=== PATIENT | female | born 1955 | race Caucasian/White ===

== ENCOUNTER → 2023-07-20 13:32 | Outpatient (REF) | payer MEDICARE, SELFPAY | LOC: RCS 13:32 | PROVIDERS: ATTENDING PHYSICIAN Nuclear Medicine Nuclear Cardiology; FAMILY PHYSICIAN Physician Assistant Medical | DX: R55 Syncope and collapse (principal); R07.89 Other chest pain | CPT/HCPCS: 93017; 93350; Q9957 ==

== ENCOUNTER → 2023-12-05 14:03 | Outpatient (REF) | payer MEDICARE, SELFPAY | LOC: PAVMRI 14:03 | PROVIDERS: ATTENDING PHYSICIAN Specialist; FAMILY PHYSICIAN Physician Assistant Medical | DX: D32.0 Benign neoplasm of cerebral meninges (principal); I63.9 Cerebral infarction, unspecified; R42 Dizziness and giddiness | CPT/HCPCS: 70553; A9575 ==

== ENCOUNTER → 2023-12-15 08:02 | Outpatient (REF) | payer MEDICARE, SELFPAY | LOC: HWWDC 08:02 | PROVIDERS: ATTENDING PHYSICIAN Physician Assistant Medical; REFERRING PHYSICIAN Obstetrics & Gynecology Gynecology | DX: Z12.31 Encounter for screening mammogram for malignant neoplasm of breast (principal) | CPT/HCPCS: 77063; 77067 ==

== ENCOUNTER → 2023-12-30 11:22 | Outpatient (REF) | payer MEDICARE, SELFPAY ==
[2023-12-30 13:28] LABS: Blood Urea Nitrogen 28 mg/dl (7-17); Calcium 9.8 mg/dl (8.4-10.2); Carbon Dioxide 23 mmol/L (22-30); Chloride 108 mmol/L (98-107); Glucose 97 mg/dl (70-99); Potassium 4.1 mmol/L (3.5-5.1); Sodium 142 mmol/L (135-145); eGFR > 60.00
== END ==
LOC: REG 11:22
PROVIDERS: ATTENDING PHYSICIAN Physician Assistant Medical
DX: Z01.812 Encounter for preprocedural laboratory examination (principal)
CPT/HCPCS: 36415; 80048

== ENCOUNTER 2023-12-30 14:27 | Emergency (ER) | payer MEDICARE, SELFPAY ==
[2023-12-30 14:31] VITALS: BP 123/84
[2023-12-30 15:15] VITALS: BP 144/63
[2023-12-30 15:30] VITALS: BP 134/74
[2023-12-30 16:00] VITALS: BP 124/92
[2023-12-30 16:30] VITALS: BP 151/74
[2023-12-30 16:41] LABS: Urine Albumin Negative (Neg - Trace); Urine Bilirubin Negative (Negative); Urine Character Clear (Clear); Urine Color Straw; Urine Glucose Negative (Negative); Urine Ketone Trace (Negative); Urine Leukocyte Negative (Negative); Urine Nitrite Negative (Negative); Urine Occult Blood Negative (Negative); Urine Urobilinogen Negative (Neg - 1+)
--- NOTE | 2023-12-30 17:02 | ED.GENMED ---
History of Present Illness
General
Chief Complaint: Abdominal Symptoms
Source: patient, records and spouse
Exam Limitations: none
Time Seen by Provider: 12/30/23 15:32
Nursing documentation reviewed up to this point in time: agreed with
History of Present Illness
History of Present Illness:
Patient is a 68-year-old female who was sent to the emergency department after developing a reaction following a CT scan with IV and oral contrast. Patient states that she seem to go through it fine and then after the scan was essentially done she
started to sneeze and then noticed her hands were itching. Then she felt her heart racing and feeling flushed. Patient felt hoarse and was told her tongue was thick. Patient feels fine now. Patient has had right lower quadrant tenderness and
pain for the past 2 weeks. Patient saw her doctor and had an ultrasound this morning which showed a noncompressible appendix. Patient was then ordered a CT scan with oral and IV contrast. Patient's never had a problem with contrast or seafood in
the past. Patient denies any anorexia, nausea, vomiting or diarrhea. Patient has an appointment with a spinner concrete pipe at the end of February. Patient does have a history of GERD and takes omeprazole. Patient also has a history of chronic
leukemia and had a CBC done but the results are not known.
Past History
Past History
ED Past Medical History: Cancer, GERD and Other (Pulmonary embolism)
ED Past Surgical History: , Orthopedic (left hip surgery with PE afterwards) and Other (ectopic surgery)
Social History
Tobacco: Non-smoker
Alcohol: None
Drug: None
Personal:
Living: with family
Employment: Retired
Family History
Family History: Other (Mother with CLL father with CHF and hypertension, brother with Alzheimer's)
Review of Systems
Review of Systems
All Other Systems: ROS reviewed and negative except as documented in HPI and ROS
Constitutional: Reports no symptoms
EENT: Reports sore throat
Respiratory: Reports no symptoms; Denies trouble breathing
Cardiac: Reports no symptoms
ABD/GI: Reports abdominal pain; Denies nausea, vomiting, diarrhea, constipated, bloody stools, black stools or anorexia
: Reports no symptoms
Musculoskeletal: Reports no symptoms
Skin: Reports itching
Neurological: Reports no symptoms
Hematologic/Lymphatic: Reports no symptoms
Psychiatric: Reports no symptoms
Phy Exam
Physical Exam
Physical Exam:
Physical Exam
General: No apparent distress, alert and appropriate, well nourished, well hydrated
HENT: Normocephalic, supple
Eyes: Clear sclera, conjuctiva without injection
Heart: Regular rhythm and rate. No S3, S4. No murmur.
Lungs: No respiratory distress, no stridor, lung sounds clear and equal bilaterally
Abdomen: Soft, mild right lower quadrant tenderness without guarding or rebound, no organomegaly, no CVA tenderness, BS good
Neuro: Alert and oriented x 3, CN II - XII intact, no motor focality, no cerebellar dysfunction
Skin: no rash
Psychiatric: well kept. interactive and cooperative
Extremities: No edema, cyanosis, tenderness
Course
Orders/Labs/Results
Orders:
Orders
12/30/23 16:27
Urinalysis Reflex To Culture Urgent
Date Specimen was Collected: 12/30/23
Time Specimen was Collected: 16:24
Abnormal Lab Results
24
16:27
Urine Ketones Trace A
(Negative)
12/30/23 16:27
Vital Signs
Initial and Last Documented VS:
Initial Vital Signs
Temp Pulse Resp BP
98.0 F 80 16 123/84
12/30/23 14:31 12/30/23 14:31 12/30/23 14:31 12/30/23 14:31
Last Documented Vital Signs
Temp Pulse Resp BP Pulse Ox
98.0 F 86 24 151/74 100
12/30/23 14:31 12/30/23 16:30 12/30/23 16:30 12/30/23 16:30 12/30/23 16:30
*Radiology
Radiology exam reviewed: radiology read reviewed (Mesenteric lymphadenopathy which is unchanged)
*Pulse Oximetry
Patient hypoxic: no
*EKG
Interpreted by ED Provider?: NA
*Hair Preparer Interpretation
Rate: Hair Preparer- N/A
*Critical Care Note
Total Time (30-74mins, 75-104mins- exclusive of procedures): Not Applicable
Update Note
Update Note:
Patient had the abdominal pain for 2 weeks. No signs of appendicitis. Will try diet manipulation, Metamucil or the equivalent and Bentyl.
ED Attending Note
-
Portions of this chart may have been created with voice recognition software.� Occasional wrong word or��sound alike� substitutions may have occurred due to the inherent limitations of voice recognition software.
Discharge Plan
Departure
Patient Disposition: Home (Routine Discharge)
Date of Disposition: 12/30/23
Time of Disposition: 17:09
Patient with high blood pressure during this ER visit?: No
Condition: Good
Covid-19: Not Applicable
Discharge Problem:
Abdominal pain
Instructions: [place] Diet, Abdominal Pain
Prescriptions:
New
dicyclomine 10 mg capsule
10 mg PO QID PRN (Reason: abdominal pain) Qty: 30 0RF
No Action
multivitamin with folic acid [Tab-A-Divina] 1 TABLET tablet
1 tab PO DAILY
levothyroxine 25 MCG tablet
50 mcg PO DAILY
ascorbic acid (vitamin C) [Vitamin C] 1,000 mg Tablet
1,000 mg PO DAILY
zinc 50 mg Capsule
50 mg PO DAILY
cholecalciferol (vitamin D3) [Vitamin D3] 125 mcg (5,000 unit) Tablet
125 mcg PO DAILY
[place] 3
980 mg PO DAILY
nucrpqr-ytoj-huihx-oreg-capryl
1,000 mg PO DAILY
meclizine 25 mg tablet
25 mg PO BID PRN (Reason: dizziness) Qty: 15 0RF
Referrals:
Tamiko Guy PA-C [Family Provider] - Follow up in 5-7 days
Activity Restrictions/Additional Instructions:
Try to eliminate gluten from your diet to see if it makes any difference. Use Metamucil daily. Any increasing pain, fever or vomiting please return.
Interventions
Interventions:
*General Assessment Last Done: 12/30/23 15:13
Discharge Date and Time
Print Language: POLISH
== END 2023-12-30 17:35 | disposition home or self-care (01) ==
LOC: EMR 14:27
PROVIDERS: EMERGENCY PHYSICIAN Emergency Medicine; FAMILY PHYSICIAN Physician Assistant Medical
DX: R00.0 Tachycardia, unspecified (principal); R23.2 Flushing; T50.8X5A Adverse effect of diagnostic agents, initial encounter; Y92.9 Unspecified place or not applicable; K21.9 Gastro-esophageal reflux disease without esophagitis; R10.9 Unspecified abdominal pain; Z82.49 Family history of ischemic heart disease and other diseases of the circulatory system; Z86.711 Personal history of pulmonary embolism
CPT/HCPCS: 99284; 74177; 76705; 81003; Q9967

== ENCOUNTER → 2024-03-28 06:42 | Day surgery (SDC) | payer MEDICARE, SELFPAY | LOC: GI 06:42 | PROVIDERS: ATTENDING PHYSICIAN Internal Medicine | DX: R10.13 Epigastric pain (principal); K44.9 Diaphragmatic hernia without obstruction or gangrene; K31.7 Polyp of stomach and duodenum; K22.89 Other specified disease of esophagus; K31.89 Other diseases of stomach and duodenum; K29.50 Unspecified chronic gastritis without bleeding | CPT/HCPCS: 43239; 88305; 88342 ==

== ENCOUNTER 2024-05-11 14:46 | Emergency (ER) | payer MEDICARE, SELFPAY ==
[2024-05-11 14:48] VITALS: BP 147/70
--- NOTE | 2024-05-11 15:44 | ED.GENMED ---
History of Present Illness
General
Chief Complaint: Fever
Source: patient
Time Seen by Provider: 05/11/24 15:09
History of Present Illness
History of Present Illness:
68-year-old female with past medical history of CLL, diagnosed 5 years ago but due to progression just started treatment for this last week with her first immunotherapy session just 2 days ago, presenting to the emergency department for evaluation
after she developed a fever with a Tmax of 100.7 earlier this morning around 5 AM which is the last time she took any Tylenol. Patient states that she was feeling a little lightheaded today and while showering around 8:00 syncopized. Patient did
note that she had prodromal symptom of feeling like she was going to pass out prior to this event. She states since that time however she has had some mild left mid to upper back/lateral chest discomfort that worsens with deep inspiration. She
denies any cough, hemoptysis, shortness of breath, abdominal pain, headache, visual changes or vomiting, lower extremity edema. Patient was at her primary care provider today and also spoke with her oncologist who wanted the patient to come to the
ER for lab work and imaging.
Past History
Past History
ED Past Medical History: Cancer, GERD and Other (Pulmonary embolism)
ED Past Surgical History: , Orthopedic (left hip surgery with PE afterwards) and Other (ectopic surgery)
Social History
Tobacco: Non-smoker
Alcohol: None
Drug: None
Personal:
Living: with family
Employment: Retired
Family History
Family History: Other (Mother with CLL father with CHF and hypertension, brother with Alzheimer's)
Review of Systems
Review of Systems
All Other Systems: ROS reviewed and negative except as documented in HPI and ROS
Phy Exam
Physical Exam
Physical Exam:
GENERAL: Alert , in no apparent distress, well-appearing and pleasant
Head: Normocephalic atraumatic
EYE: Clear conjunctiva
NECK: Supple, no midline tenderness
ENT: o/p clr, mmm.
CARDIAC: Regular rate and rhythm .
LUNGS: Clear breath sounds bilaterally, no acute respiratory distress, no wheezes/rales/rhonchi
Chest wall: No focal bony areas of tenderness
ABDOMEN: Soft, without focal tenderness, no r/g, no cvat
NEUROLOGICAL: Alert and oriented
SKIN: Warm and dry, skin intact.
MUSCULOSKELETAL: No edema, well perfused.
PSYCH: Normal and appropriate interaction.
Scores
Heart Failure Risk
Heart Failure Risk Score: Not Applicable
Heart Score for Chest Pain Patients
STEMI patient?: Not applicable
Withdrawal Assessment of Alcohol
Withdrawal Assessment Completed?: Not applicable
Course
Orders/Labs/Results
Orders:
Orders
05/11/24 15:25
Orthostatic VS- Treatment ONCE
05/11/24 15:26
Electrocardiogram (*1) Urgent
Reason for Study: Syncope
CT Chest Pe Study Urgent
Comment:
Reason For Exam: syncope, pleurisy
EKG- Treatment ONCE
05/11/24 15:39
Diphenhydramine [Benadryl] 50 mg IV NOW STA
Hydrocortisone Sod Succinate [Solu-Cortef] 200 mg IV NOW STA
05/11/24 15:40
Troponin I Urgent
Blood Culture Q30M
FUENTES Source: Blood/Venous
Specimen Description:
05/11/24 15:41
Complete Blood Count/With Diff Urgent
Comprehensive Metabolic Panel Urgent
LDH Urgent
Comment: ADD ON
Lactic Acid Q4H
Comment: CANCEL 2nd LACTIC ACID IF 1st LACTIC ACID IS LESS THAN 2
Magnesium Urgent
Uric Acid Urgent
Urinalysis Reflex To Culture Urgent
Date Specimen was Collected: 05/11/24
Time Specimen was Collected: 15:37
Urine Microscopic Reflex Cult Urgent
Blood Culture Q30M
FUENTES Source: Blood/Venous
Specimen Description:
Urine Culture Urgent
FUENTES Source: U
Specimen Description:
Date Specimen was Collected: 05/11/24
Time Specimen was Collected: 15:37
05/11/24 18:20
COVID-19 Antigen Urgent
Source: Nasal Swab
Influenza A+B Rapid Molecular Urgent
FUENTES Source: Nasal Swab
Specimen Description:
05/11/24 18:21
Add On- LAB Urgent
Tests Added?: LDH
Abnormal Lab Results
05/11/24
15:41
WBC 2.6 L 10^3/uL
(4.8-10.8)
RBC 2.69 L 10^6/uL
(4.20-5.40)
Hgb 8.6 L g/dL
(12.0-16.0)
Hct 26.2 L %
(37.0-47.0)
MCH 32.0 H pg
(27.0-31.0)
MCHC 32.8 L g/dL
(33.0-37.0)
RDW 18.1 H %
(11.5-14.5)
Plt Count 48 L 10^3/uL
(130-400)
MPV 10.5 H fL
(7.4-10.4)
Absolute Lymphs (auto) 0.7 L 10^3/uL
(1.2-3.4)
Immature Gran % 1.5 H %
(0-0.5)
BUN 22 H mg/dl
(7-17)
Glucose 118 H mg/dl
(70-99)
Total Bilirubin 2.0 H mg/dl
(0.2-1.3)
AST 59 H U/L
(14-36)
ALT 75 H U/L
(0-35)
Total Protein 5.7 L g/dl
(6.3-8.2)
Ur Occult Blood Reflex 2+ A
(Negative)
Leukocyte Esterase Rfl 1+ A
(Negative)
05/11/24 15:41
05/11/24 15:41
Vital Signs
Initial and Last Documented VS:
Initial Vital Signs
Temp Pulse Resp BP Pulse Ox
99.2 F 81 16 147/70 100
05/11/24 14:48 05/11/24 14:48 05/11/24 14:48 05/11/24 14:48 05/11/24 14:48
Last Documented Vital Signs
Temp Pulse Resp BP Pulse Ox
99.2 F 71 19 121/62 100
05/11/24 14:48 05/11/24 17:00 05/11/24 17:00 05/11/24 16:02 05/11/24 14:48
MDM/Problems Addressed
Differential Diagnosis Includes:
Cardiogenic syncope versus orthostasis versus vagal event, sepsis, tumor lysis syndrome, UTI, pneumonia, rib fracture, PE
MDM/Problems Addressed:
68-year-old female presenting to the emergency department for evaluation of fever that started earlier this morning, last dose of Tylenol around 5 AM. Patient also had syncopal event earlier today with prodromal symptoms but since that time has had
some left upper back/thoracic discomfort. Afebrile here and hemodynamically stable. Patient is also well-appearing. Will check labs requested by patient's oncology team. Given her syncope and pleurisy I did add on a CTA of the chest to rule out
pulmonary embolism. Will also check EKG and troponin. Disposition pending.
Chronic conditions affecting care: Cancer
*Radiology
Radiology exam reviewed: radiology read reviewed
*Pulse Oximetry
Patient hypoxic: no
*Inspector Tubes Interpretation
Rate: normal
Rhythm: sinus
*Critical Care Note
Total Time (30-74mins, 75-104mins- exclusive of procedures): Not Applicable
Data Reviewed
Review of Other/Old Records Reveals: Labs and Records
Comment
Comment:
After ordering CT of the chest patient informed us that last time she had the CT with contrast she believes that she had an allergic reaction to the contrast dye. Will pretreat with medications.
5:40PM - called into patients room, O2 sat 78% RA. Patient denies SOB but states feels weak. Placed on 4L NC but only brought O2 sat to 83%. NRB placed with response to 94%. Patient states weakness improving. No angioedema, tolerating secretions,
and speaking full sentences
Patient Management
Discussion with other providers: Mixer Attendant
Escalation/DeEscalation of care consider admission/obs:
Patient's oxygen was able to be weaned off and she maintains a 100% room air saturation. Continues to not display any signs of anaphylaxis. Patient CT scan without any acute findings. I contacted patient's oncology team spoke with her oncologist,
Dr. Crandall, and reviewed all of these results. Patient's hematology labs are all similar to when patient last had labs done earlier this week. Unclear etiology for patient's mildly elevated bilirubin and AST/ALT. COVID and flu testing were
negative. At this time patient is stable for discharge home, oncology team agrees and will continue following up with the patient.
ED Attending Note
-
Portions of this chart may have been created with voice recognition software.� Occasional wrong word or��sound alike� substitutions may have occurred due to the inherent limitations of voice recognition software.
Discharge Plan
Departure
Patient Disposition: Home (Routine Discharge)
Date of Disposition: 05/11/24
Time of Disposition: 18:44
Patient with high blood pressure during this ER visit?: No
Discharge Problem:
Fever, Anemia, Thrombocytopenia
Instructions: Fever, Adult (DC)
Prescriptions:
No Action
multivitamin with folic acid [Tab-A-Divina] 1 TABLET tablet
1 tab PO DAILY
levothyroxine 25 MCG tablet
50 mcg PO DAILY
ascorbic acid (vitamin C) [Vitamin C] 1,000 mg Tablet
1,000 mg PO DAILY
zinc 50 mg Capsule
50 mg PO DAILY
cholecalciferol (vitamin D3) [Vitamin D3] 125 mcg (5,000 unit) Tablet
125 mcg PO DAILY
[place] 3
980 mg PO DAILY
wnliazz-qgat-nnadv-oreg-capryl
1,000 mg PO DAILY
meclizine 25 mg tablet
25 mg PO BID PRN (Reason: dizziness) Qty: 15 0RF
dicyclomine 10 mg capsule
10 mg PO QID PRN (Reason: abdominal pain) Qty: 30 0RF
Referrals:
Tamiko Guy PA-C [Family Provider] -
Interventions
Interventions:
*Risk Screen - Suicide Last Done: 05/11/24 14:48
*General Assessment Last Done: 05/11/24 14:48
*Neglect/Abuse Screening Last Done: 05/11/24 14:48
ED- Fall Risk Assessment Last Done: 05/11/24 15:53
*ED COVID-19 Vaccine History Last Done: 05/11/24 15:53
*Nursing Disposition Last Done: 05/11/24 18:52
ED- Neurological Assessment Last Done: 05/11/24 15:53
ED-Skin Assessment Last Done: 05/11/24 15:53
Discharge Date and Time
Discharge Date/Time: 05/11/24 18:53
Print Language: HUNGARIAN
[2024-05-11 15:53] VITALS: BMI 26.5
[2024-05-11 16:00] VITALS: BP 112/53
[2024-05-11 16:01] VITALS: BP 116/55
[2024-05-11] MEDS: BENADRYL 50 MG IV (16:01)
[2024-05-11 16:02] VITALS: BP 121/62
[2024-05-11] MEDS: SOLU-CORTEF 200 MG IV (16:02)
[2024-05-11 16:06] LABS: Urine Albumin Negative (Neg - Trace); Urine Bilirubin Negative (Negative); Urine Character Clear (Clear); Urine Color Straw; Urine Glucose Negative (Negative); Urine Ketone Negative (Negative); Urine Leukocyte 1+ (Negative); Urine Nitrite Negative (Negative); Urine Occult Blood 2+ (Negative); Urine Urobilinogen Negative (Neg - 1+)
[2024-05-11 16:08] LABS: % Eosinophils 0.4 % (0-6); % Immature Granulocytes 1.5 % (0-0.5); % Lymphocytes 24.6 % (20.5-51.1); % Monocytes 7.6 % (1.7-9.3); % Neutrophils 65.9 % (42.2-75.2); Absolute Lymphocytes 0.7 10^3/uL (1.2-3.4); Absolute Monocytes 0.2 10^3/uL (0.1-0.6); Absolute Neutrophils 1.7 10^3/uL (1.4-6.5); Hematocrit 26.2 % (37.0-47.0); Hemoglobin 8.6 g/dL (12.0-16.0); Mean Corp Hgb Conc. 32.8 g/dL (33.0-37.0); Mean Corpuscular Volume 97.4 fL (81.0-99.0); Nucleated Red Blood Cells % 0 %; Red Blood Cell Count 2.69 10^6/uL (4.20-5.40); Red Cell Dist. Width 18.1 % (11.5-14.5); White Blood Cell Count 2.6 10^3/uL (4.8-10.8)
[2024-05-11 16:10] VITALS: BP 112/53; BP 116/55; BP 121/62; PULSE 100; PULSE 77; PULSE 78
[2024-05-11 16:13] LABS: ALT (SGPT) 75 U/L (0-35); AST (SGOT) 59 U/L (14-36); Albumin 3.6 g/dl (3.5-5.0); Alkaline Phosphatase 45 U/L (38-126); Blood Urea Nitrogen 22 mg/dl (7-17); Calcium 8.5 mg/dl (8.4-10.2); Carbon Dioxide 27 mmol/L (22-30); Chloride 102 mmol/L (98-107); Estimated Creatinine Clearance 79 ml/min; Glucose 118 mg/dl (70-99); Lactic Acid 0.9 mmol/L (0.7-2.0); Potassium 3.5 mmol/L (3.5-5.1); Sodium 138 mmol/L (135-145); Total Protein 5.7 g/dl (6.3-8.2); Uric Acid 3.3 mg/dl (2.5-6.2); eGFR > 60.00
[2024-05-11 16:29] LABS: Urine Squamous Cell 0-2 /LPF (Few)
[2024-05-11 16:30] LABS: Mean Platelet Volume 10.5 fL (7.4-10.4); Platelet Count 48 10^3/uL (130-400); Urine Red Blood Cell 0-2 /HPF (0-2); Urine White Cell 0-2 /HPF (0-5)
[2024-05-11 16:31] LABS: Troponin I < 0.012 ng/ml
[2024-05-11 18:43] LABS: COVID-19 Antigen Negative (Negative)
[2024-05-11 18:51] LABS: LDH 243 U/L (120-246)
== END 2024-05-11 18:53 | disposition home or self-care (01) ==
LOC: EMR 14:46
PROVIDERS: Physician Assistant Medical; EMERGENCY PHYSICIAN Emergency Medicine; FAMILY PHYSICIAN Physician Assistant Medical
DX: R50.9 Fever, unspecified (principal); D64.9 Anemia, unspecified; D69.6 Thrombocytopenia, unspecified; C91.10 Chronic lymphocytic leukemia of B-cell type not having achieved remission; K21.9 Gastro-esophageal reflux disease without esophagitis; Z86.711 Personal history of pulmonary embolism; R09.1 Pleurisy; Z79.899 Other long term (current) drug therapy
CPT/HCPCS: 96374; 96375; 99284; 71275; 80053; 81003; 81015; 83605; 83615; 83735; 84484; 84550; 85025; 87040; 87086; 87502; 87811; 93005; Q9967

== ENCOUNTER → 2024-06-11 09:29 | Outpatient (REF) | payer MEDICARE, SELFPAY | LOC: RCS 09:29 | PROVIDERS: ATTENDING PHYSICIAN Physician Assistant; FAMILY PHYSICIAN Physician Assistant Medical | DX: R42 Dizziness and giddiness (principal); C91.10 Chronic lymphocytic leukemia of B-cell type not having achieved remission; R06.09 Other forms of dyspnea; I34.0 Nonrheumatic mitral (valve) insufficiency | CPT/HCPCS: 93306; 93356 ==

== ENCOUNTER 2024-08-23 04:51 | Emergency (ER) | payer MEDICARE, SELFPAY ==
[2024-08-23 04:55] VITALS: BP 152/97
[2024-08-23 05:22] VITALS: BP 148/72
[2024-08-23 05:23] VITALS: BMI 27.5
[2024-08-23 06:12] VITALS: BP 135/60
--- NOTE | 2024-08-23 06:14 | ED.GENMED ---
History of Present Illness
General
Chief Complaint: Chest Problem
Source: patient
Exam Limitations: none
Time Seen by Provider: 08/23/24 06:01
History of Present Illness
History of Present Illness:
See MDM
Past History
Past History
ED Past Medical History: Cancer, GERD and Other (Pulmonary embolism)
ED Past Surgical History: , Orthopedic (left hip surgery with PE afterwards) and Other (ectopic surgery)
Social History
Tobacco: Non-smoker
Alcohol: None
Drug: None
Personal:
Living: with family
Employment: Retired
Family History
Family History: Other (Mother with CLL father with CHF and hypertension, brother with Alzheimer's)
Phy Exam
Physical Exam
Physical Exam:
See MDM
Course
Orders/Labs/Results
Orders:
Orders
08/23/24 04:54
EKG [Electrocardiogram (*1)] Urgent
Reason for Study: Chest Pain
EKG- Treatment ONCE
08/23/24 06:09
Complete Blood Count/With Diff Urgent
Comprehensive Metabolic Panel Urgent
Manual Differential Urgent
Troponin I Urgent
08/23/24 06:13
CR Chest - 2 Views Urgent
Comment:
Reason For Exam: intermittent chest pain
US Periph Venous LOWER Ext [place] Urgent
Comment:
Reason For Exam: CP, SOB, leg pain
08/23/24 06:14
CT Abd/pel Without Iv Or Oral Urgent
Comment:
Reason For Exam: flank and midline low back pain
Abnormal Lab Results
08/23/24
06:09
WBC 32.5 H 10^3/uL
(4.8-10.8)
RBC 3.96 L 10^6/uL
(4.20-5.40)
MCHC 32.8 L g/dL
(33.0-37.0)
Abs Neuts (Manual) 27.3 H 10^3/uL
(1.4-6.5)
Segmented Neutrophils 78 H %
(42-75)
Band Neutrophils 6 H %
(0-3)
Lymphocytes (Manual) 9 L %
(20-51)
BUN 20 H mg/dl
(7-17)
Glucose 110 H mg/dl
(70-99)
Alkaline Phosphatase 142 H U/L
(38-126)
08/23/24 06:09
08/23/24 06:09
Vital Signs
Initial and Last Documented VS:
Initial Vital Signs
Temp Pulse Resp BP Pulse Ox
98.6 F 100 18 152/97 100
08/23/24 04:55 08/23/24 04:55 08/23/24 04:55 08/23/24 04:55 08/23/24 04:55
Last Documented Vital Signs
Temp Pulse Resp BP Pulse Ox
98.0 F 89 16 141/66 99
08/23/24 07:25 08/23/24 07:15 08/23/24 07:15 08/23/24 07:15 08/23/24 07:15
MDM/Problems Addressed
Differential Diagnosis Includes:
HPI and MDM Narrative:
69-year-old female presenting with several days of intermittent back pain. Patient localizes the pain to her midline low back. When this occurs, she gets a feeling in her chest and complains of chest pressure. This then causes a fast heart rate.
The symptoms appear to come and go. There is no exertional component to this. Currently, patient symptom-free. Patient does have history of CLL and recently received Neulasta shot. However, she states there is no new medications.
On exam, she is well-appearing nontoxic. We did discuss the possibility of dissection versus pulmonary embolism but given the intermittent symptoms and how well-appearing she is, doubt the diagnosis. Patient states she is severely allergic to IV
dye even when given the steroid and Benadryl prep. Will avoid IV dye. Will obtain bilateral leg ultrasound to rule out any concern for clots. Will obtain chest x-ray and will obtain CT abdomen/pelvis without contrast to evaluate for any
metastatic disease
Given the intermittent palpitations, discussed outpatient Holter monitor. Patient states she recently just had one
Physical exam
General: Well appearing and non-toxic
HEENT: protecting airway
Neck: appears supple
CV: No evidence of cyanosis. Regular rate and rhythm
Resp: No accessory muscle use. Lungs clear
Abd: Non-distended
Back: Mild lower lumbar tenderness without skin changes
Extremities: No deformities. No unilateral erythema to lower extremities
Neuro: alert
Psych: Normal affect
Skin: Intact
Problems Addressed including Acute and Chronic Conditions affecting care:
1. Intermittent chest discomfort
Acuity: acute
Prognosis: stable
Details: Given the intermittent nature without exertional component, doubt ACS or dissection. Will obtain chest x-ray
2. Intermittent back pain
Acuity: acute
Prognosis: stable
Details: Will obtain CT looking for any evidence of pathologic fracture or metastatic disease
Updates
Chest x-ray clear. Ultrasound negative for DVT. CT negative for acute pathology other than constipation issues. Patient feels comfortable going home. Discussed laxatives and stool softeners and follow-up with PCP. We question whether or not
patient should be evaluated by cardiology. She states she just saw the inspector pawnshop detail
Differential Diagnosis (but not limited to): Compression fracture, A-fib, noncardiac chest pain
Testing considered: D-dimer
Drug therapy (if applicable): OTC meds, please see d/c instruction regarding Rx drugs
Amount and/or Complexity of Data Reviewed
Clinical info obtained from: Patient
External data reviewed: N/A
Labs I independently reviewed (but not limited to): Leukocytosis but patient just got her Neulasta shot
Radiology: X-ray independently reviewed: Chest x-ray clear
The CT scan was personally and independently reviewed. In addition, official CT report reviewed.
Pulse Ox: not hypoxic
EKG independently reviewed: Sinus rhythm, right axis, no STEMI
Claims Consultant: Sinus rhythm
Critical Care: N/A
Risk of Complication:
Social Determinants of health: Good social support
Discussed with other providers: N/A
Escalation of Care includes Admit/Obs: After being observed in the Emergency Department, pt stable for discharge.
Occasional wrong word or 'sound a like' substitutions may have occurred due to the inherent limitations of voice recognition software. Read the chart carefully and recognize, using context, where substitutions have occurred.
*Critical Care Note
Total Time (30-74mins, 75-104mins- exclusive of procedures): Not Applicable
ED Attending Note
-
Portions of this chart may have been created with voice recognition software.� Occasional wrong word or��sound alike� substitutions may have occurred due to the inherent limitations of voice recognition software.
Discharge Plan
Departure
Patient Disposition: Home (Routine Discharge)
Date of Disposition: 08/23/24
Time of Disposition: 07:36
Patient with high blood pressure during this ER visit?: Yes
Discharge Problem:
Chest pressure
Instructions: Chest Pain PCP Follow Up, BLOOD PRESSURE
Prescriptions:
No Action
multivitamin with folic acid [Tab-A-Divina] 1 TABLET tablet
1 tab PO DAILY
levothyroxine 25 MCG tablet
50 mcg PO DAILY
ascorbic acid (vitamin C) [Vitamin C] 1,000 mg Tablet
1,000 mg PO DAILY
zinc 50 mg Capsule
50 mg PO DAILY
cholecalciferol (vitamin D3) [Vitamin D3] 125 mcg (5,000 unit) Tablet
125 mcg PO DAILY
[place] 3
980 mg PO DAILY
uznexlc-kjjf-rgtco-oreg-capryl
1,000 mg PO DAILY
meclizine 25 mg tablet
25 mg PO BID PRN (Reason: dizziness) Qty: 15 0RF
dicyclomine 10 mg capsule
10 mg PO QID PRN (Reason: abdominal pain) Qty: 30 0RF
Referrals:
UNKNOWN - PT DOES,NOT KNOW [Family Provider] -
Activity Restrictions/Additional Instructions:
Please return for any worsening symptoms.
You may return at any time if you have further concerns.
Please follow up with your doctor at the first available appointment, preferably this week.
It is not certain whether or not your symptoms are related to mild constipation. Please take a daily stool softener and please take a laxative for the next few days.
Thank you for choosing [facility].
Interventions
Interventions:
*Risk Screen - Suicide Last Done: 08/23/24 04:55
*General Assessment Last Done: 08/23/24 05:23
*Neglect/Abuse Screening Last Done: 08/23/24 07:11
*ED- Fall Risk Assessment Last Done: 08/23/24 05:23
*ED COVID-19 Vaccine History Last Done: 08/23/24 05:23
ED- Cardiac Assessment Last Done: 08/23/24 05:23
ED- Pulmonary Assessment Last Done: 08/23/24 05:23
Discharge Date and Time
Print Language: HEBREW
[2024-08-23 06:24] LABS: Hematocrit 37.2 % (37.0-47.0); Hemoglobin 12.2 g/dL (12.0-16.0); Mean Corp Hgb Conc. 32.8 g/dL (33.0-37.0); Mean Corpuscular Hgb 30.8 pg (27.0-31.0); Mean Corpuscular Volume 93.9 fL (81.0-99.0); Mean Platelet Volume 9.9 fL (7.4-10.4); Platelet Count 175 10^3/uL (130-400); Red Blood Cell Count 3.96 10^6/uL (4.20-5.40); Red Cell Dist. Width 13.3 % (11.5-14.5); White Blood Cell Count 32.5 10^3/uL (4.8-10.8)
[2024-08-23 06:35] LABS: ALT (SGPT) 35 U/L (0-35); AST (SGOT) 35 U/L (14-36); Albumin 4.7 g/dl (3.5-5.0); Alkaline Phosphatase 142 U/L (38-126); Blood Urea Nitrogen 20 mg/dl (7-17); Calcium 9.7 mg/dl (8.4-10.2); Carbon Dioxide 23 mmol/L (22-30); Chloride 106 mmol/L (98-107); Estimated Creatinine Clearance 91 ml/min; Glucose 110 mg/dl (70-99); Potassium 4.2 mmol/L (3.5-5.1); Sodium 141 mmol/L (135-145); Total Bilirubin 0.7 mg/dl (0.2-1.3); Total Protein 6.9 g/dl (6.3-8.2); eGFR > 60.00
[2024-08-23 06:45] LABS: Troponin I < 0.012 ng/ml
[2024-08-23 07:15] VITALS: BP 141/66
[2024-08-23 07:22] LABS: Absolute Neutrophils -Man Diff 27.3 10^3/uL (1.4-6.5); Band Neutrophils 6 % (0-3); Lymphocytes 9 % (20-51); Metamyelocytes 2 % (-); Monocytes 3 % (2-9); Myelocytes 2 % (-); Normal RBC Morphology Yes; Platelets Checked Yes; Segmented Neutrophils 78 % (42-75); Total Cells Counted 100
== END 2024-08-23 07:54 | disposition home or self-care (01) ==
LOC: EMR 04:51
PROVIDERS: Emergency Medicine; EMERGENCY PHYSICIAN Student in an Organized Health Care Education/Training Program
DX: R07.89 Other chest pain (principal); M79.606 Pain in leg, unspecified; K21.9 Gastro-esophageal reflux disease without esophagitis; C91.10 Chronic lymphocytic leukemia of B-cell type not having achieved remission; I50.9 Heart failure, unspecified; G30.9 Alzheimer's disease, unspecified; F02.80 Dementia in other diseases classified elsewhere, unspecified severity, without behavioral disturbance, psychotic disturbance, mood disturbance, and anxiety; Z82.49 Family history of ischemic heart disease and other diseases of the circulatory system; Z86.711 Personal history of pulmonary embolism; Z87.59 Personal history of other complications of pregnancy, childbirth and the puerperium
CPT/HCPCS: 99284; 71046; 74176; 80053; 84484; 85025; 93005; 93970

== ENCOUNTER → 2024-10-17 11:40 | Outpatient (REF) | payer MEDICARE, SELFPAY | LOC: MRI 11:40 | PROVIDERS: ATTENDING PHYSICIAN Physical Medicine & Rehabilitation; FAMILY PHYSICIAN Physician Assistant Medical | DX: M54.16 Radiculopathy, lumbar region (principal) | CPT/HCPCS: 72148 ==

== ENCOUNTER → 2024-12-12 10:01 | Outpatient (REF) | payer MEDICARE, SELFPAY | LOC: RCS 10:01 | PROVIDERS: ATTENDING PHYSICIAN Nuclear Medicine Nuclear Cardiology; FAMILY PHYSICIAN Physician Assistant Medical | DX: R09.89 Other specified symptoms and signs involving the circulatory and respiratory systems (principal); R55 Syncope and collapse; R06.09 Other forms of dyspnea; R07.9 Chest pain, unspecified | CPT/HCPCS: 93017; 93350 ==

== ENCOUNTER → 2024-12-17 08:25 | Outpatient (REF) | payer MEDICARE, SELFPAY | LOC: HWRAD 08:25 | PROVIDERS: ATTENDING PHYSICIAN Obstetrics & Gynecology Gynecology; FAMILY PHYSICIAN Physician Assistant Medical | DX: Z78.0 Asymptomatic menopausal state (principal); Z12.31 Encounter for screening mammogram for malignant neoplasm of breast | CPT/HCPCS: 77063; 77067; 77080 ==

== ENCOUNTER 2024-12-20 06:21 | Day surgery (SDC) | payer MEDICARE, SELFPAY | END 2024-12-20 13:41 | disposition home or self-care (01) | LOC: GI 06:21 | PROVIDERS: ATTENDING PHYSICIAN Internal Medicine; FAMILY PHYSICIAN Physician Assistant Medical | DX: K21.00 Gastro-esophageal reflux disease with esophagitis, without bleeding (principal); K31.7 Polyp of stomach and duodenum; K29.70 Gastritis, unspecified, without bleeding; Z13.810 Encounter for screening for upper gastrointestinal disorder; K31.89 Other diseases of stomach and duodenum | CPT/HCPCS: 43239; 88305; 88342 ==

== ENCOUNTER → 2025-01-07 16:56 | Outpatient (REF) | payer MEDICARE, SELFPAY | LOC: CLAB 16:56 | PROVIDERS: ATTENDING PHYSICIAN Otolaryngology | DX: J02.9 Acute pharyngitis, unspecified (principal) | CPT/HCPCS: 87070; 87077; 87185 ==

== ENCOUNTER → 2025-02-12 09:37 | Outpatient (REF) | payer MEDICARE, SELFPAY | LOC: HWRAD 09:37 | PROVIDERS: ATTENDING PHYSICIAN Otolaryngology; FAMILY PHYSICIAN Physician Assistant Medical | DX: J01.01 Acute recurrent maxillary sinusitis (principal); R05.3 Chronic cough | CPT/HCPCS: 70486; 71046 ==

== ENCOUNTER → 2025-03-14 12:00 | Outpatient (REF) | payer MEDICARE, SELFPAY | LOC: CLAB 12:00 | PROVIDERS: ATTENDING PHYSICIAN Otolaryngology | DX: J01.01 Acute recurrent maxillary sinusitis (principal) | CPT/HCPCS: 87070; 87077; 87185; 87205 ==

== ENCOUNTER 2025-05-04 03:22 | Emergency (ER) | payer MEDICARE, SELFPAY ==
[2025-05-04 03:27] VITALS: BP 133/91
--- NOTE | 2025-05-04 04:01 | ED.GENMED ---
History of Present Illness
General
Chief Complaint: Breathing Problem
Source: patient
Exam Limitations: none
Time Seen by Provider: 05/04/25 03:48
History of Present Illness
History of Present Illness:
See MDM
Past History
Past History
ED Past Medical History: Cancer, GERD and Other (Pulmonary embolism)
ED Past Surgical History: , Orthopedic (left hip surgery with PE afterwards) and Other (ectopic surgery)
Social History
Tobacco: Non-smoker
Alcohol: None
Drug: None
Personal:
Living: with family
Employment: Retired
Family History
Family History: Other (Mother with CLL father with CHF and hypertension, brother with Alzheimer's)
Phy Exam
Physical Exam
Physical Exam:
See MDM
Scores
Heart Failure Risk
Heart Failure Risk Score: Not Applicable
Course
Orders/Labs/Results
Orders:
Orders
05/04/25 03:32
IV Insert/Care/Rem.- Treatment PRN
05/04/25 03:57
CR Chest - 2 Views Urgent
Comment:
Reason For Exam: cough, sob
05/04/25 03:59
Complete Blood Count/With Diff Urgent
Comprehensive Metabolic Panel Urgent
Lipase Urgent
Manual Differential Urgent
Urinalysis Reflex To Culture Urgent
Date Specimen was Collected: 05/04/25
Time Specimen was Collected: 03:33
05/04/25 05:44
Azithromycin [Zithromax] 500 mg PO NOW STA
Prednisone [Deltasone] 20 mg PO NOW STA
Abnormal Lab Results
05/04/25
03:59
WBC 4.2 L 10^3/uL
(4.8-10.8)
RBC 3.57 L 10^6/uL
(4.20-5.40)
Hct 34.9 L %
(37.0-47.0)
MCH 33.6 H pg
(27.0-31.0)
Monocytes (Manual) 28 H %
(2-9)
Chloride 108 H mmol/L
(98-107)
BUN 21 H mg/dl
(7-17)
ALT 45 H U/L
(0-35)
05/04/25 03:59
05/04/25 03:59
Vital Signs
Initial and Last Documented VS:
Initial Vital Signs
Pulse Resp BP Pulse Ox
76 20 133/91 100
05/04/25 03:27 05/04/25 03:27 05/04/25 03:27 05/04/25 03:27
Last Documented Vital Signs
Temp Pulse Resp BP Pulse Ox
98.1 F 72 18 133/91 100
05/04/25 03:42 05/04/25 04:06 05/04/25 04:06 05/04/25 03:27 05/04/25 04:08
MDM/Problems Addressed
Differential Diagnosis Includes:
Note:
CHIEF COMPLAINT(S)
Shortness of breath, chronic cough, and abdominal pain.
HISTORY OF PRESENT ILLNESS
The patient is a 69-year-old female with a history of chronic lymphocytic leukemia (CLL), who presented with shortness of breath and a chronic cough lasting several months. The patient reports that the cough initially presented as an upper
respiratory issue, managed by Dr. Daily, and has been present for several years. Despite treatment with antibiotics, no resolution of symptoms has occurred, and the cough has now moved into the chest, producing brown-green sputum each morning. The
sputum is described as roughly the size of a nickel, with additional clear phlegm production throughout the day. The patient was previously evaluated by Dr. Franklin, who prescribed an inhaler (air spacer), conducted cultures that returned with normal
davidson, and noted that the patient has been on steroids (prednisone) previously, which helped with phlegm and post-nasal drip, but not with the current symptoms.
The patient also notes onset of abdominal pain, characterized by distention and discomfort, suggesting it is not related to coughing. The pain developed after consuming an egg McMuffin, with distention mainly on the right side. The patient describes
the pain as similar to feeling sick to the stomach, accompanied by diarrhea and a significant amount of gurgling, but denies constipation.
PAST MEDICAL AND SURGICAL HISTORY
- Chronic lymphocytic leukemia (CLL)
- Past clot
ADDITIONAL HISTORY OBTAINED FROM SOURCES OTHER THAN THE PATIENT
N/A
EXTERNAL RECORDS REVIEWED
According to past lab results, previous labs showed normal davidson. Previous CT scan performed by Dr. Rick without contrast.
CHRONIC MEDICAL CONDITIONS SIGNIFICANTLY AFFECTING CARE
Chronic lymphocytic leukemia (CLL)
SOCIAL DETERMINANTS AFFECTING HEALTH
N/A
PHYSICAL EXAM
General: Alert, no acute distress.
Skin: Warm, dry.
Head: Normocephalic, atraumatic
Neck: Appears supple, trachea midline.
Eyes, Ears, Nose, Mouth, and Throat: Moist mucous membranes
Cardiovascular: No signs of cyanosis
Respiratory: Respirations are non-labored. Lungs clear
Abdomen: Gaseous distention but no significant tenderness
Musculoskeletal: No deformities
Neurological: No focal neurological deficit observed.
Psychiatric: Cooperative, appropriate mood and affect.
PLAN
1. Order blood work to assess current status, including liver function and pancreatic enzymes.
2. Conduct a chest X-ray.
3. Consider azithromycin if chest X-ray is normal.
4. Evaluate the need for steroids to address ongoing symptoms.
5. Monitor abdominal symptoms and consider further gastrointestinal workup if needed.
DIFFERENTIAL DIAGNOSIS
The Differential Diagnosis includes, in no particular order and is not limited to:
- Bronchitis
- Gastroesophageal reflux disease (GERD)
- Chronic obstructive pulmonary disease (COPD)
- Pulmonary embolism
- Atypical pneumonia
- Congestive heart failure
- Asthma
- Lung cancer
- Tuberculosis
- Abdominal obstruction
SUMMARY OF ENCOUNTER
The patient presented with a history of chronic respiratory symptoms and new onset of abdominal discomfort. The management in the emergency department includes conducting radiological and blood tests to investigate both respiratory and abdominal
symptoms. The decision-making involved assessing the patients chronic conditions, potential need for antibiotics, and considering steroid therapy for symptom relief. Further evaluation of abdominal symptoms was considered given their recent onset
after food intake.
INDEPENDENT REVIEW OF LABS AND INTERPRETATION OF TESTS
My independent review of previous lab tests indicates normal davidson from sputum cultures. Further lab testing results are pending.
MEDICAL DECISION MAKING
- Number and Complexity of Problems Addressed: Chronic conditions affecting care [Chronic lymphocytic leukemia (CLL)] and Differential Diagnosis includes: Bronchitis, Gastroesophageal reflux disease (GERD), Chronic obstructive pulmonary disease
(COPD), Pulmonary embolism, Atypical pneumonia, Congestive heart failure, Asthma, Lung cancer, Tuberculosis, Abdominal obstruction.
- Data:
Category 1:
- Non-emergency department records reviewed, relevant lab results previously obtained showing normal davidson in sputum cultures.
Category 3:
- Discussion of management includes proposing a chest X-ray and consideration of starting azithromycin and possible steroid therapy.
-Risk:
Consideration of Admission/Observation: Escalation of care including admission/observation was considered given the complexity and risk of the patients presenting complaint, exam findings, and/or their underlying comorbidities. However, ultimately I
feel the patient is safe for outpatient management with close follow-up. Reasoning: Work-up reassuring, does not reveal any acute life/organ-threatening processes, patients symptoms well-controlled upon reevaluation, reexamination is reassuring,
vitals are stable, patient agreeable with discharge, reliable for follow-up.
DIAGNOSIS
- Chronic cough (R05)
- Shortness of breath (R06.02)
- Abdominal pain (R10.84)
- Suspected bronchitis (J20.9)
SUMMARY OF ENCOUNTER
The patient presented with shortness of breath and a chronic cough lasting for several weeks, with significant mucus production and mucus plugging. Given her immunocompromised state, a decision was made to start azithromycin. The chest x-ray
appeared clear, but since the patient is symptomatic, a short course of prednisone will also be prescribed because she has tolerated steroids in the past. The patient is comfortable with this plan. Additionally, the patients abdominal distension and
pain, thought to be gaseous, seem to be resolving without intervention.
PLAN
1. Start azithromycin for respiratory symptoms.
2. Prescribe a short course of prednisone due to history of tolerance and current symptomatic presentation.
3. Monitor the resolution of abdominal symptoms and consider further gastrointestinal workup if symptoms persist.
INDEPENDENT REVIEW OF LABS AND INTERPRETATION OF TESTS
My independent review of the chest x-ray indicates clear lung morales.
PATIENT EDUCATION AND COUNSELING
The patient was informed about the likely gaseous nature of her abdominal pain and advised on the treatment plan, including the use of azithromycin and prednisone.
FOLLOW-UP INSTRUCTIONS
The patient is advised to follow up with her primary care physician or a specialist if symptoms persist or worsen.
MEDICATION RECONCILIATION
- Azithromycin will be started.
- Prescription for a short course of prednisone due to historical tolerance.
MEDICAL DECISION MAKING
- Number and Complexity of Problems Addressed: Chronic conditions affecting care, including chronic lymphocytic leukemia (CLL). Differential diagnosis includes bronchitis, gastroesophageal reflux disease (GERD), chronic obstructive pulmonary disease
(COPD), pulmonary embolism, atypical pneumonia, congestive heart failure, asthma, lung cancer, tuberculosis, and abdominal obstruction.
-Data:
Category 1
- Non-emergency department records reviewed, relevant previous normal davidson in sputum cultures.
Category 3
- Discussion of management including starting azithromycin and a short course of prednisone due to her past tolerance of steroids.
-Risk: Prescription medication was prescribed.
DIAGNOSIS
- Chronic cough (R05)
- Shortness of breath (R06.02)
- Abdominal pain, likely gaseous (R10.84)
- Suspected bronchitis (J20.9)
*Pulse Oximetry
SaO2: 100
Oxygen Mode of Delivery: Room air
Patient hypoxic: no
*Critical Care Note
Total Time (30-74mins, 75-104mins- exclusive of procedures): Not Applicable
ED Attending Note
-
Portions of this chart may have been created with voice recognition software.� Occasional wrong word or��sound alike� substitutions may have occurred due to the inherent limitations of voice recognition software.
Discharge Plan
Departure
Patient Disposition: Home (Routine Discharge)
Date of Disposition: 05/04/25
Time of Disposition: 05:46
Patient with high blood pressure during this ER visit?: No
Discharge Problem:
Bronchitis
Instructions: Bronchitis in adults - ED (DC)
Prescriptions:
New
prednisone 10 mg tablet
20 mg PO DAILY 5 Days Qty: 10 0RF
azithromycin 250 mg tablet
250 mg PO DAILY 4 Days Qty: 4 0RF
No Action
multivitamin with folic acid [Tab-A-Divina] 1 TABLET tablet
1 tab PO DAILY
levothyroxine 25 MCG tablet
50 mcg PO DAILY
ascorbic acid (vitamin C) [Vitamin C] 1,000 mg Tablet
1,000 mg PO DAILY
zinc 50 mg Capsule
50 mg PO DAILY
cholecalciferol (vitamin D3) [Vitamin D3] 125 mcg (5,000 unit) Tablet
125 mcg PO DAILY
[place] 3
980 mg PO DAILY
vczqyhs-wqeq-pphin-oreg-capryl
1,000 mg PO DAILY
meclizine 25 mg tablet
25 mg PO BID PRN (Reason: dizziness) Qty: 15 0RF
dicyclomine 10 mg capsule
10 mg PO QID PRN (Reason: abdominal pain) Qty: 30 0RF
Activity Restrictions/Additional Instructions:
Please return for any worsening symptoms.
You may return at any time if you have further concerns.
Please follow up with your doctor at the first available appointment, preferably this week.
Thank you for choosing [facility].
Interventions
Interventions:
*Risk Screen - Suicide Last Done: 05/04/25 03:27
*General Assessment Last Done: 05/04/25 03:27
*Neglect/Abuse Screening Last Done: 05/04/25 03:27
*ED- Fall Risk Assessment Last Done: 05/04/25 03:27
*ED COVID-19 Vaccine History Last Done: 05/04/25 03:27
*ED Influenza Vaccine History Last Done: 05/04/25 03:27
ED- Cardiac Assessment Last Done: 05/04/25 04:06
ED- Pulmonary Assessment Last Done: 05/04/25 04:06
Discharge Date and Time
Print Language: [id number]
[2025-05-04 04:06] VITALS: BMI 26.6
[2025-05-04 04:19] LABS: Urine Character Clear (Clear)
[2025-05-04 04:42] LABS: Hematocrit 34.9 % (37.0-47.0); Hemoglobin 12.0 g/dL (12.0-16.0); Mean Corp Hgb Conc. 34.4 g/dL (33.0-37.0); Mean Corpuscular Volume 97.8 fL (81.0-99.0); Platelet Count 216 10^3/uL (130-400); Red Cell Dist. Width 13.1 % (11.5-14.5)
[2025-05-04 04:45] LABS: ALT (SGPT) 45 U/L (0-35); AST (SGOT) 33 U/L (14-36); Albumin 4.3 g/dl (3.5-5.0); Alkaline Phosphatase 64 U/L (38-126); Blood Urea Nitrogen 21 mg/dl (7-17); Calcium 9.3 mg/dl (8.4-10.2); Carbon Dioxide 24 mmol/L (22-30); Chloride 108 mmol/L (98-107); Estimated Creatinine Clearance 78 ml/min; Glucose 99 mg/dl (70-99); Lipase 156 U/L (23-300); Potassium 4.1 mmol/L (3.5-5.1); Sodium 137 mmol/L (135-145); Total Protein 6.8 g/dl (6.3-8.2); eGFR > 60.00
[2025-05-04 05:00] VITALS: BP 142/80
[2025-05-04 05:19] LABS: Absolute Neutrophils -Man Diff 1.8 10^3/uL (1.4-6.5)
[2025-05-04 05:20] LABS: Normal RBC Morphology Yes; Platelets Checked Yes; Total Cells Counted 100
[2025-05-04] MEDS: ZITHROMAX 500 MG PO (05:57)
[2025-05-04] MEDS: DELTASONE 20 MG PO (05:57)
== END 2025-05-04 06:10 | disposition home or self-care (01) ==
LOC: EMR 03:22
PROVIDERS: EMERGENCY PHYSICIAN Student in an Organized Health Care Education/Training Program; FAMILY PHYSICIAN Physician Assistant Medical
DX: J40 Bronchitis, not specified as acute or chronic (principal); R10.9 Unspecified abdominal pain; C91.10 Chronic lymphocytic leukemia of B-cell type not having achieved remission; Z86.711 Personal history of pulmonary embolism
CPT/HCPCS: 99284; 71046; 80053; 81003; 83690; 85025